=== PATIENT | female | born 1995 | race African-American/Black ===

== ENCOUNTER 2017-05-22 11:27 | Emergency (ER) | payer OTHER, MEDICAID ==
[~2017-05-22] VITALS: Ht 162.6 cm; Wt 84.0 kg
[2017-05-22] MEDS ORDERED: LORazepam 2 MG/ML VIAL ONE (11:30)
[2017-05-22 11:36] VITALS: BP 144/75; PULSE 112; RESP 26; TEMP 98.7; O2SAT 100
[2017-05-22] MEDS ORDERED: PHEN37.54 PO (11:40)
[2017-05-22 11:44] VITALS: O2SAT 100
[2017-05-22] MEDS ORDERED: SODIUM CHLORIDE 0.9% FLUSH 10 ML FLUSH IVF PRN (11:45)
--- NOTE | 2017-05-22 12:08 | RADRPT ---
EXAM DATE/TIME: 05/22/2017 12:02 [place] COMPARISON: No previous studies available for comparison. INDICATIONS : Chest pain since this morning. MEDICAL HISTORY : None. SURGICAL HISTORY : None. ENCOUNTER: Initial ACUITY: 1 day PAIN SCORE: 8/10 LOCATION: Left chest FINDINGS: A single view of the chest demonstrates the lungs to be symmetrically aerated without evidence of mas s, infiltrate or effusion. The cardiomediastinal contours are unremarkable. Osseous structures are intact. CONCLUSION: Normal examination for a patient of this age. Hunter Gonsales MD on May 22, 2017 at 12:06 Board Certified Radiologist. This report was verified electronically.
[2017-05-22 12:15] LABS: AUTOMATED NEUTROPHIL # 5.3 TH/MM3 (1.8-7.7); BASOPHIL % 0.5 % (0.0-2.0); EOSINOPHIL # 0.2 TH/MM3 (0-0.4); EOSINOPHIL % 2.5 % (0.0-4.0); HEMATOCRIT 35.3 % (35.0-46.0); HEMO FLAGS DIFF FINAL; LYMPH % 23.3 % (9.0-44.0); LYMPHOCYTE # 1.9 TH/MM3 (1.0-4.8); MEAN CELL VOLUME 87.9 FL (80.0-100.0); MEAN CORPUSCULAR HEMOGLOBIN 29.7 PG (27.0-34.0); MEAN CORPUSCULAR HGB CONC 33.7 % (32.0-36.0); MONO % 8.2 % (0.0-8.0); NEUT % 65.5 % (16.0-70.0); PLATELET COUNT 230 TH/MM3 (150-450); RED BLOOD COUNT 4.02 MIL/MM3 (4.00-5.30); RED CELL DISTRIBUTION WIDTH 13.4 % (11.6-17.2); WHITE BLOOD COUNT 8.1 TH/MM3 (4.0-11.0)
--- NOTE | 2017-05-22 12:22 | PD ---
HPI Chief Complaint: Respiratory Distress Time Seen by Provider: 11:32 Travel History International Travel<30 days: No Contact w/Intl Traveler<30days: No Traveled to known affect area: No History of Present Illness HPI Diagnoses a 21-year-old female with a history of anemia, heart murmur, who presents today with complaints of pleuritic chest pain and shortness of breath. The patient states she was at work at about 10 AM she started experiencing symptoms. She states she got in her car to drive here but care home here the discomfort became worse. She called her mother to ask her to pick her up but hung up on her before she told where she was. Mom was at the bedside states that she started to drive the route from her home to work and found here on [facility] [place] the [place]. The patient denies any previous cardiac history other than the murmur. She denies any asthma or reactive airway disease. She has an IUD in place. She denies smoking. She denies any long car rides. She denies any previous DVTs or blood clots. She denies any traumatic injuries to her extremities. There are no other complaints time my examination. PFS Past Medical History Anemia: Yes Depression: Yes Cardiovascular Problems: Yes (HTN) Diminished Hearing: No Hypertension: Yes ?: Not LMP: 05/19/17 Past Surgical History Surgical History: No Previous Surgery Social History Alcohol Use: Yes (occasionally) Tobacco Use: No Substance Use: No Allergies-Medications (Allergen,Severity, Reaction): Coded Allergies: No Known Allergies (Verified Allergy, Unknown, 05/22/17) Reported Meds & Prescriptions Reported Meds & Active Scripts Active Reported Phentermine (Phentermine HCl) 37.5 Mg Cap 37.5 Mg PO DAILY Review of Systems Except as stated in HPI: all other systems reviewed are Neg General / Constitutional: No: Fever, Chills HENT: No: Headaches, Lightheadedness Cardiovascular: Positive: Chest Pain or Discomfort, No: Palpitations, Irregular Rhythm (neuritic left sided) Respiratory: Positive: Shortness of Breath, No: Cough, Wheezing Gastrointestinal: No: Nausea, Vomiting, Abdominal Pain Genitourinary: No: Dysuria Musculoskeletal: No: Weakness, Edema (no lower extremity edema or calf tenderness), Pain Neurologic: No: Weakness, Dizziness, Headache Psychiatric: No: Anxiety, Substance Abuse (no history of nice) Physical Exam Narrative GENERAL: Well-developed well-nourished female who appears anxious and is hyperventilating. SKIN: Focused skin assessment warm/dry. HEAD: Atraumatic. Normocephalic. EYES: Pupils equal and round. No scleral icterus. No injection or drainage. ENT: No nasal bleeding or discharge. Mucous membranes pink and moist. NECK: Trachea midline. No JVD. Supple. CARDIOVASCULAR: Tachycardic with sinus rhythm. No murmur appreciated by her history of murmur. RESPIRATORY: No accessory muscle use. Clear to auscultation. Breath sounds equal bilaterally. GASTROINTESTINAL: Abdomen soft, non-tender, nondistended. Hepatic and splenic margins not palpable. MUSCULOSKELETAL: No obvious deformities. No clubbing. No cyanosis. No edema. No calf tenderness or swelling. NEUROLOGICAL: Awake and alert and anxious. No obvious cranial nerve deficits. Motor grossly within normal limits. PSYCHIATRIC: Anxious mood and tearful. Data Data Last Documented VS Vital Signs Date Time Temp Pulse Resp B/P (MAP) Pulse Ox O2 Delivery O2 Flow Rate FiO2 05/22/17 15:46 93 16 117/71 (86) 99 Room Air 05/22/17 11:44 2.00 05/22/17 11:36 98.7 Orders Orders Lorazepam Inj (Ativan Inj) (05/22/17 11:30) Ckmb (Isoenzyme) Profile (05/22/17 11:42) Complete Blood Count With Diff (05/22/17 11:42) Comprehensive Metabolic Panel (05/22/17 11:42) D-Dimer (05/22/17 11:42) Magnesium (Mg) (05/22/17 11:42) Prothrombin Time / Inr (Pt) (05/22/17 11:42) Act Partial Throm Time (Ptt) (05/22/17 11:42) Troponin I (05/22/17 11:42) Chest, Single Ap (05/22/17 11:42) Ecg Monitoring (05/22/17 11:42) Bilateral Bp Monitoring (05/22/17 11:42) Iv Access Insert/Monitor (05/22/17 11:42) Oximetry (05/22/17 11:42) Oxygen Administration (05/22/17 11:42) Sodium Chloride 0.9% Flush (Ns Flush) (05/22/17 11:45) Drug Screen, Random Urine (05/22/17 12:22) CKMB (05/22/17 12:04) CKMB% (05/22/17 12:04) Ketorolac Inj (Toradol Inj) (05/22/17 13:15) Albuterol-Ipratropium Neb (Duoneb Neb) (05/22/17 14:15) Albuterol Neb (Albuterol Neb) (05/22/17 14:15) Electrocardiogram (05/22/17 14:55) Ckmb (Isoenzyme) Profile (05/22/17 14:55) Troponin I (05/22/17 14:55) Westergren Sedimentation Rate (05/22/17 14:55) CKMB (05/22/17 15:25) CKMB% (05/22/17 15:25) Electrocardiogram (05/22/17 11:30) Labs Laboratory Tests Test 05/22/17 12:04 05/22/17 13:17 05/22/17 15:25 White Blood Count 8.1 TH/MM3 Red Blood Count 4.02 MIL/MM3 Hemoglobin 11.9 GM/DL Hematocrit 35.3 % Mean Corpuscular Volume 87.9 FL Mean Corpuscular Hemoglobin 29.7 PG Mean Corpuscular Hemoglobin Concent 33.7 % Red Cell Distribution Width 13.4 % Platelet Count 230 TH/MM3 Mean Platelet Volume 9.3 FL Neutrophils (%) (Auto) 65.5 % Lymphocytes (%) (Auto) 23.3 % Monocytes (%) (Auto) 8.2 % Eosinophils (%) (Auto) 2.5 % Basophils (%) (Auto) 0.5 % Neutrophils # (Auto) 5.3 TH/MM3 Lymphocytes # (Auto) 1.9 TH/MM3 Monocytes # (Auto) 0.7 TH/MM3 Eosinophils # (Auto) 0.2 TH/MM3 Basophils # (Auto) 0.0 TH/MM3 CBC Comment DIFF FINAL Differential Comment Prothrombin Time 11.7 SEC Prothromb Time International Ratio 1.1 RATIO Activated Partial Thromboplast Time 26.0 SEC D-Dimer Quantitative (PE/DVT) 0.49 MG/L FEU Blood Urea Nitrogen 18 MG/DL Creatinine 0.78 MG/DL Random Glucose 90 MG/DL Total Protein 8.0 GM/DL Albumin 4.0 GM/DL Calcium Level 8.6 MG/DL Magnesium Level 1.9 MG/DL Alkaline Phosphatase 65 U/L Aspartate Amino Transf (AST/SGOT) 14 U/L Alanine Aminotransferase (ALT/SGPT) 18 U/L Total Bilirubin 0.4 MG/DL Sodium Level 141 MEQ/L Potassium Level 3.7 MEQ/L Chloride Level 108 MEQ/L Carbon Dioxide Level 26.3 MEQ/L Anion Gap 7 MEQ/L Estimat Glomerular Filtration Rate 77 ML/MIN Total Creatine Kinase 149 U/L 131 U/L Creatine Kinase MB 0.8 NG/ML 0.6 NG/ML Troponin I LESS THAN 0.02 NG/ML LESS THAN 0.02 NG/ML Urine Opiates Screen NEG Urine Barbiturates Screen NEG Urine Amphetamines Screen NEG Urine Benzodiazepines Screen NEG Urine Cocaine Screen NEG Urine Cannabinoids Screen NEG Erythrocyte Sedimentation Rate 44 mm/hr MDM Medical Decision Making Medical Screen Exam Complete: Yes Emergency Medical Condition: Yes Interpretation(s) Last 24 hours Impressions Chest X-Ray 05/22/17 1142 Signed Impressions: Service Date/Time: Wednesday, May 22, 2017 12:02 - CONCLUSION: Normal examination for a patient of this age. Hunter Gonsales MD Differential Diagnosis Pulmonary embolus versus panic attack versus ACS Narrative Course This Is a 21-year-old female presents with complaints of chest pain, chest pressure. The patient was not feeling well at work. She states that she thought she had a cold and was on her way to see the doctor when she started experiencing chest pain and/chest pressure. The patient denies any cardiac history other than a murmur. Patient has no heart murmur on my examination. When she presented, her EKG showed no evidence of acute ST elevation noted depression. She had sinus tach on the monitor. She does give history that she was on phentermine for weight loss. She states she's been off of it now for 3 days. She's been given Toradol 30 mg I V times one dose. She's had 2 EKGs that show no evidence of acute ST elevation or depression. Her cardiac enzymes are negative on both readings. The patient also has a sedimentation rate of 44. I informed her that this could possibly be pleurisy. She will be started on Toradol 10 mg 3 times a day 4 days. She'll also be given a prescription for Medrol Dosepak. I've also written her prescription for Vistaril to take as needed for agitation. She is instructed to follow up with her primary care doctor who prescribes her phentermine. D-dimer was negative. The patient has no risk factors for PE. Chest x-ray showed no acute process with a normal mediastinum. Heart rate at time of discharge was 92. Diagnosis Primary Impression: Atypical chest pain Additional Instructions: Return if feeling worse or any other reason. Avoid caffeinated beverages and coffee. Follow up with primary care physician for your weight loss medication. Med/Other Pt SpecificInfo: Prescription(s) given Disposition: DISCHARGE HOME Condition: Stable Lasha Carrera MD May 22, 2017 12:21
[2017-05-22 12:28] LABS: INTERNATIONAL NORMALIZED RATIO 1.1 RATIO; PROTHROMBIN TIME - PATIENT 11.7 SEC (9.8-11.6)
[2017-05-22 12:31] LABS: ALT (GPT) 18 U/L (10-53); ANION GAP 7 MEQ/L (5-15); AST (GOT) 14 U/L (15-37); BICARBONATE 26.3 MEQ/L (21.0-32.0); BLOOD UREA NITROGEN 18 MG/DL (7-18); CHLORIDE 108 MEQ/L (98-107); GLOMERULAR FILTRATION RATE 77 ML/MIN (>89); MAGNESIUM 1.9 MG/DL (1.5-2.5); POTASSIUM 3.7 MEQ/L (3.5-5.1); SODIUM (NA) 141 MEQ/L (136-145)
[2017-05-22 12:36] LABS: ALKALINE PHOSPHATASE 65 U/L (45-117); CREATINE KINASE 149 U/L (26-192); TOTAL BILIRUBIN ADULT 0.4 MG/DL (0.2-1.0)
[2017-05-22 12:48] LABS: CKMB 0.8 NG/ML (0.5-3.6)
[2017-05-22] MEDS ORDERED: KETOROLAC TROMETHAMINE 30 MG/ML (IVP) VIAL IV PUSH ONE (13:15)
[2017-05-22] MEDS ORDERED: RESP: ALBUTEROL 2.5 MG/IPRATROPIUM 0.5 MG NEB (SCH) INH ONE (14:15)
[2017-05-22] MEDS: RESP: ALBUTEROL 2.5 MG/3 ML NEB (SCH) INH (14:16)
[2017-05-22 15:46] VITALS: BP 117/71; PULSE 93; RESP 16; O2SAT 99
[2017-05-22 15:51] LABS: CREATINE KINASE 131 U/L (26-192)
[2017-05-22 16:03] LABS: CKMB 0.6 NG/ML (0.5-3.6)
--- NOTE | 2017-05-22 16:16 | EKG ---
Date Performed: 05/22/2017 Time Performed: 15:28:35 PTAGE: 89 years EKG: SINUS TACHYCARDIA ABNORMAL RHYTHM ECG No significant change from prior electrocardiogram. PREVIOUS TRACING : 05/22/2017 11.30 DOCTOR: Clay Thompson Interpretating Date/Time 05/22/2017 16:14:51
--- NOTE | 2017-05-22 16:24 | EKG ---
Date Performed: 05/22/2017 Time Performed: 11:30:56 PTAGE: 89 years EKG: SINUS TACHYCARDIA ABNORMAL RHYTHM ECG NO PREVIOUS TRACING DOCTOR: Clay Thompson Interpretating Date/Time 05/22/2017 16:21:52
== END 2017-05-22 17:13 | disposition home or self-care (01) ==
LOC: NEPC 11:27 → EDBD 11:27 → NEPC 17:13
DX: R07.89 Other chest pain (principal); R06.02 Shortness of breath; D64.9 Anemia, unspecified; F32.9 Major depressive disorder, single episode, unspecified; I10 Essential (primary) hypertension; Z79.899 Other long term (current) drug therapy
CPT/HCPCS: 71010; 80053; 80307; 82550; 82552; 83735; 84484; 85025; 85379; 85610; 85652; 85730; 93005; 94640; 94664; 96374; 96375; 99285; J1885; J2060; J7613